=== PATIENT | female | born 1965 | race African-American/Black ===

== ENCOUNTER 2021-05-29 20:11 | Emergency (ER) | payer MEDICAID, OTHER ==
[~2021-05-29] VITALS: Ht 160 cm; Wt 86.9 kg
[~2021-05-29 20:11] MED LIST: ASPI-1497 PO; CARV12.545 PO; FURO20TA4 PO; LOSA50TA41 PO; MONT10TA21 PO; SPIR25TA6 PO
[2021-05-29 20:53] LABS: BASOPHILS % 0.7 % (0.0-2.0); EOSINOPHILS % 2.1 % (0.0-5.0); HEMOGLOBIN. 11.6 g/dL (12.0-16.0); LYMPHOCYTES % 35.2 % (20.0-50.0); MEAN CORPUSCULAR HEMOGLOBIN 27.7 pg (28.0-32.0); MEAN CORPUSCULAR VOLUME 85.8 fL (81.0-99.0); MEAN PLATELET VOLUME 8.1 fl (7.4-10.4); MONOCYTES % 7.3 % (2.0-8.0); NEUTROPHILS % 54.7 % (40.0-76.0); PLATELET 197 x1000/uL (130-400); RED CELL DISTRIBUTION WIDTH 15.8 % (11.6-14.6)
[2021-05-29 21:00] LABS: CHLORIDE 108 mEq/L (98-107)
[2021-05-29 21:04] LABS: ETHANOL BLOOD < 10 mg/dL
[2021-05-29] MEDS ORDERED: ASPIRIN 325MG EC TABLET PO NR (21:45)
[2021-05-29] MEDS ORDERED: ATOR20TA65 MT (22:29)
[2021-05-29] MEDS ORDERED: ATORVASTATIN CALCIUM 20MG TABLET PO NR (22:30)
[2021-05-29] MEDS ORDERED: IOHEXOL-350 100 ML BOTTLE ONE (23:00)
[2021-05-29 23:12] VITALS: BP 120/76
== END 2021-05-29 23:13 | disposition home or self-care (01) ==
LOC: ER 20:11 → CANBEDREQ 05-30 07:21
DX: G45.9 Transient cerebral ischemic attack, unspecified (principal); F12.10 Cannabis abuse, uncomplicated; Z95.0 Presence of cardiac pacemaker; Z79.899 Other long term (current) drug therapy
CPT/HCPCS: 36415; 70450; 70496; 70498; 71045; 80053; 80320; 82962; 84484; 85025; 93005; 99285; Q9967; G0480